=== PATIENT | male | born 1995 | race Two or more races ===

== ENCOUNTER 2017-06-07 13:57 | Emergency (ER) | payer MEDICAID ==
[~2017-06-07] VITALS: Ht 154.9 cm; Wt 81.6 kg
[2017-06-07 15:17] VITALS: BP 152/93
[2017-06-07 15:22] LABS: Basophils # (auto) 0.2 uL; Basophils % (auto) 1.2 % (0.0-2.0); Eosinophils # (auto) 0.4 uL; Eosinophils % (auto) 2.2 % (0.0-7.0); Hematocrit 39.7 % (41.0-53.0); Hemoglobin 13.2 g/dL (13.5-17.5); Lymphocytes % (auto) 18.4 % (10.0-50.0); Mean Corpuscular Hemoglobin 27.4 pg (28.0-32.0); Mean Corpuscular Hgb Conc. 33.3 g/dL (32.0-36.0); Mean Corpuscular Volume 82.3 fL (80.0-100.0); Monocytes # (auto) 1.3 uL; Monocytes % (auto) 7.7 % (0.0-12.0); Neutrophils # (auto) 11.5 uL; Neutrophils % (auto) 70.5 % (37.0-80.0); Platelet Count (auto) 348 10^3/uL (140-450); Red Blood Cells 4.83 10^6/uL (4.5-5.90); Red Cell Distribution Width 13.4 % (11.8-14.3); White Blood Cell 16.4 10^3/uL (4.4-10.8)
[2017-06-07] MEDS ORDERED: SODIUM CHLORIDE 0.9% 1,000 ML IV ONE (15:23)
[2017-06-07] MEDS ORDERED: VANCOMYCIN 1GM/250ML 250 ML IV ONE (15:30)
[2017-06-07 15:42] LABS: Albumin 3.6 g/dL (3.4-5.0); BUN/Creatinine Ratio 16.7; Bilirubin, Total 0.7 mg/dL (0.2-1.0); Potassium 3.9 mmol/L (3.5-5.1); Total Protein 8.6 g/dL (6.4-8.2)
== END 2017-06-07 17:27 | disposition home or self-care (01) ==
LOC: ER 13:57
DX: L03.012 Cellulitis of left finger (principal); M86.9 Osteomyelitis, unspecified
CPT/HCPCS: 36415; 71046; 73130; 80053; 83735; 85025; 99285; J7030